=== PATIENT | female | born 1980 | race African-American/Black ===

== ENCOUNTER 2024-11-15 15:19 | Emergency (ER) | payer OTHER ==
[~2024-11-15] VITALS: Ht 175.3 cm; Wt 88.7 kg
[2024-11-15 15:45] VITALS: O2SAT 98
--- NOTE | 2024-11-15 16:09 | ED.PDOC ---
History of Present Illness HPI Comments 44-year-old female with PMHx Uterine Fibroids presents with a chief complaint of abnormal labs. Patient states that she had a routine checkup at her PCP office a week ago and had blood work drawn. Patient states that she received a phone call today that advised her to go to the nearest ER due to having a HGB of 7.2 and low Iron levels. Patient denies any pain, shortness a breath or current bleeding. She states she does have heavy menses which she believes are due to uterine fibroids. She denies any hematemesis, black stools, pain, weakness, dizziness, shortness of breath or other symptoms. She is requesting and iron infusion. 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 Bilateral Carpal tunnel release FINANCIAL UNDERWRITER History: Uterine Fibroids Family History Family History: Reviewed,noncontributory to illness Social History Smoker: Non-Smoker Alcohol: Denies ETOH Use Drugs: Denies Drug Use Lives In: Home Constitutional: denies: chills, diaphoresis, fatigue, fever, malaise, sweats, weakness, others EENTM: denies: blurred vision, double vision, ear bleeding, ear discharge, ear drainage, ear pain, ear ringing, eye pain, eye redness, hearing loss, mouth pain, mouth swelling, nasal discharge, nose bleeding, nose congestion, nose pain, photophobia, tearing, throat pain, throat swelling, voice changes, others Respiratory: denies: cough, hemoptysis, orthopnea, SOB at rest, shortness of breath, SOB with excertion, stridor, wheezing, others Cardiovascular: denies: chest pain, dizzy spells, diaphoresis, Dyspnea on exertion, edema, irregular heart beat, left arm pain, lightheadedness, pal pitations, PND, syncope, others Gastrointestinal: denies: abdomen distended, abdominal pain, blood streaked bowels, constipated, diarrhea, dysphagia, difficulty swallowing, hematemesis, melena, nausea, poor appetite, poor fluid intake, rectal bleeding, rectal pain, vomiting, others Genitourinary: denies: abnormal vagina bleeding, burning, dyspareunia, dysuria, flank pain, frequency, hematuria, incontinence, pain, , vagina discharge, urgency, others Neurological: denies: dizziness, fainting, headache, left sided numbness, left sided weakness, numbness, paresthesia, pre-existing deficit, right sided numbness, right sided weakness, seizure, speech problems, tingling, tremors, weakness, others Musculoskeletal: denies: back pain, gout, joint pain, joint swelling, muscle pain, muscle stiffness, neck pain, others Integumetry: denies: bruises, change in color, change in hair/nails, dryness, laceration, lesions, lumps, rash, wounds, others Allergic/Immunocompromised: denies: Difficulty Healing, Frequent Infections, Hives, Itching, others Hematologic/Lymphatic: denies: anemia, blood clots, easy bleeding, easy b ruising, swollen glands, others Endocrine: denies: excessive hunger, excessive sweating, excessive thirst, excessive urination, flushing, intolerance to cold, intolerance to heat, unexplained weight gain, unexplained weight loss, others Psychiatric: denies: anxiety, bipolar disorder, depression, hopeless, panic disorder, schizophrenia, sleepless, suicidal, others All Other Systems: Reviewed and Negative Physical Exam General Appearance: No Apparent Distress HEENT: Other (Pupils and face symmetric. Moist mucous membranes.) Neck: Full Range of Motion, Normal Inspection Respiratory: Lungs Clear, No Accessory Muscle Use, No Respiratory Distress, Normal Breath Sounds Cardiovascular: No Edema, No JVD, Regular Rate/Rhythm Breast Exam: Deferred Gastrointestinal: Non Tender, Soft Genitalia: Deferred Pelvic: Deferred Rectal: Deferred Extremities: Normal inspection, Normal range of motion, Non-tender, No pedal edema Musculoskeletal : Apperance: Normal Neurologic: Alert (Oriented x4), Normal Affect, Normal Mood, Other (Ambulatory without difficulty) Cerebellar Function: NOT DONE Reflexes: NOT DONE Skin: Dry, Normal Color, Warm Lymphatic: NOT DONE Was a procedure done? Was a procedure done?: No Differential Dx Considerations may include: Anemia, lab air, low iron levels, coagulopathy, among others X-Ray, Labs, Meds, VS Vital Signs Date Time Temp Pulse Resp B/P (MAP) Pulse Ox O2 Delivery O2 Flow Rate FiO2 11/15/24 15:57 97.9 95 18 118/74 (89) 98 97.9 11/15/24 15:45 98 Room Air* 0 21 Lab Test 11/15/24 16:15 Range/Units White Blood Count 7.3 4.4-10.8 10^3/uL Red Blood Count 3.78 L 4.0-5.20 10^6/uL Hemoglobin 8.0 L 12.2-16.2 g/dL Hematocrit 27.9 L 36.0-46.0 % Mean Corpuscular Volume 74.0 L 80.0-100.0 fL Mean Corpuscular Hemoglobin 21.3 L 28.0-32.0 pg Mean Corpuscular Hemoglobin Concent 28.8 L 32.0-36.0 g/dL Red Cell Distribution Width 19.9 H 11.8-14.3 % Platelet Count 272 140-450 10^3/uL Mean Platelet Volume 9.2 6.9-10.8 fL Neutrophils (%) (Auto) 55.8 37.0-80.0 % Lymphocytes (%) (Auto) 33.0 10.0-50.0 % Monocytes (%) (Auto) 7.6 0.0-12.0 % Eosinophils (%) (Auto) 3.2 0.0-7.0 % Basophils (%) (Auto) 0.4 0.0-2.0 % Neutrophils # (Auto) 4.1 1.6-8.6 10 ^3/uL Lymphocytes # (Auto) 2.4 0.4-5.4 10 ^3/uL Monocytes # (Auto) 0.6 0-1.3 10 ^3/uL Eosinophils # (Auto) 0.2 0-0.8 10 ^3/uL Basophils # (Auto) 0 0-0.2 10 ^3/uL Nucleated Red Blood Cells 0.1 % Prothrombin Time 10.5 9.3-11.8 sec Prothrombin Time INR 0.99 0.9-1.15 Activated Partial Thromboplast Time 24.1 L 24.5-34.5 SEC Sodium Level 140 136-145 mmol/L Potassium Level 3.6 3.5-5.1 mmol/L Chloride Level 108 H 98-107 mmol/L Carbon Dioxide Level 24 20-31 mmol/L Anion Gap 8 5-15 Blood Urea Nitrogen 9 9-23 mg/dL Creatinine 0.83 0.550-1.02 mg/dL Glomerular Filtration Rate Calc 88 >90 mL/min BUN/Creatinine Ratio 10.8 10.0-20.0 Serum Glucose 87 74-106 mg/dL Calcium Level 9.6 8.7-10.4 mg/dL Iron Level 24 L 50-170 ug/dL Total Iron Binding Capacity 364 250-425 ug/dL Percent Iron Saturation 6.6 L 15-50 % X-Ray, Labs, Meds, VS Comment 44-year-old female with a history of anemia and uterine fibroids brought in by family, referred by primary physician for evaluation of hemoglobin of 7.2 based on labs drawn a week ago, associated with low iron levels Vitals unremarkable Exam unremarkable Rhythm strip independently interpreted by me: Sinus rhythm, rate 95, no ectopy. CBC remarkable for hemoglobin 8, hematocrit 27.9, metabolic panel unremarkable, iron level 24, % saturation 6.6 Patient treated with the following in the ED: Iron infusion IV On re-evaluation, patient was asymptomatic with stable vitals. She appears stable for discharge with close outpatient follow-up with her primary physician. Time of 1ST Reevaluation: 16:28 Reevaluation 1ST: Unchanged Patient Education/Counseling: Diagnosis, Treatment Family Education/Counseling: No Family Present SEPSIS Sepsis Screen Physician Orders Iron Ivpb (11/15/24 18:15) Vital Signs Date Time Temp Pulse Resp B/P (MAP) Pulse Ox O2 Delivery O2 Flow Rate FiO2 11/15/24 15:57 97.9 95 18 118/74 (89) 98 97.9 11/15/24 15:45 98 Room Air* 0 21 Laboratory Tests Test 11/15/24 16:15 White Blood Count 7.3 10^3/uL (4.4-10.8) Departure 1 Departure Time of Disposition: 18:17 Impression: Primary Impression: Anemia Additional Impression: Iron deficiency Disposition: HOME / SELF CARE / HOMELESS Condition: Stable Additional Instructions: Your blood tests showed you are anemic, however you do not need a blood transfusion. Your hemoglobin was 8. Your iron level was low. We have given an IV iron infusion in the ER. Follow-up with your primary doctor in 1-2 days for re-evaluation. Discharged With: Relative Critical Care Note Critical Care Time?: No Stability Stability form required: No Heart Score Heart Score: Heart Score Response (Comments) Value History N/A 0 EKG N/A 0 Age N/A 0 Risk Factors N/A 0 Troponin N/A 0 Total 0 I personally scribed for KINDRA DUARTE MD ([email or web address]) on 11/15/24 at 16:09. Electronically submitted by Nic Lara ([email or web address]). KINDRA DUARTE MD Nov 15, 2024 16:09
[2024-11-15 16:45] LABS: Hematocrit 27.9 % (36.0-46.0); Hemoglobin 8.0 g/dL (12.2-16.2); Mean Corpuscular Hemoglobin 21.3 pg (28.0-32.0); Mean Corpuscular Volume 74.0 fL (80.0-100.0); Nucleated Red Blood Cells % 0.1 %
[2024-11-15 16:54] LABS: Potassium 3.6 mmol/L (3.5-5.1); Sodium 140 mmol/L (136-145)
[2024-11-15 16:55] LABS: Anion Gap 8 (5-15); Calcium 9.6 mg/dL (8.7-10.4); Carbon Dioxide 24 mmol/L (20-31)
[2024-11-15 16:56] LABS: Chloride 108 mmol/L (98-107)
[2024-11-15 16:59] LABS: Iron 24.0 ug/dL (50-170)
[2024-11-15 17:00] LABS: BUN/Creatinine Ratio 10.8 (10.0-20.0); Blood Urea Nitrogen 9 mg/dL (9-23); Glucose 87 mg/dL (74-106)
[2024-11-15 17:01] LABS: Total Iron Binding Capacity 364.0 ug/dL (250-425)
[2024-11-15 17:06] LABS: INR 0.99 (0.9-1.15); Partial Thromboplastin Time 24.1 SEC (24.5-34.5); Prothrombin Time 10.5 sec (9.3-11.8)
[2024-11-15] MEDS ORDERED: IRON SUCROSE COMPLEX 110 ML IV ONE (18:15)
[2024-11-15] MEDS: IRON SUCROSE COMPLEX 110 ML IV ONE (20:33)
[2024-11-15 22:30] VITALS: BP 136/84; PULSE 76; RESP 13; TEMP 97.8; O2SAT 98
== END 2024-11-15 22:50 | disposition home or self-care (01) ==
LOC: ER 15:19
DX: D50.8 Other iron deficiency anemias (principal); R06.02 Shortness of breath; Z86.018 Personal history of other benign neoplasm; Z89.611 Acquired absence of right leg above knee; Z89.612 Acquired absence of left leg above knee; Z98.890 Other specified postprocedural states; Z88.3 Allergy status to other anti-infective agents
CPT/HCPCS: 36415; 80048; 83540; 83550; 85025; 85610; 85730; 96365; 96366; 99284; J1756

== ENCOUNTER 2025-03-23 13:45 | Emergency (ER) | payer OTHER ==
[~2025-03-23] VITALS: Ht 175.3 cm; Wt 92.1 kg
--- NOTE | 2025-03-23 14:21 | ED.PDOC ---
FILLING WINDER HPI Comments HPI: This is a 44 year old female presenting to the ED with chief complaint of lower abdominal pain. Patient reports that she is currently experiencing lower abdominal pain since yesterday, associated with her menses starting on Thursday. Patient relays that her lower abdominal pain is current with the start of her menses due to having uterine fibroids. Patient states she had a recent "biopsy to rule out HPV" performed in [place] on Thursday. Patient notes that she has taken Motrin with no relief in pain noted. Patient reports that she is pending an MRI scheduled by her OBGYN in [place]. Patient denies any N/V/D, chest pain, SOB, dizziness, fever, or chills. Past Medical History: Uterine Fibroids, Anemia Past Surgical History: Bilateral AKA, Bilateral Carpal Tunnel Release Social History: Denies smoking, drinking, or drug use. 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 Electronically submitted by Justino Luevano ([email or web address]). I personally scribed for DWIGHT MULLER DO ([email or web address]) on 03/23/25 at 14:21. Electronically submitted by Justino Luevano ([email or web address]). DWIGHT MULLER DO Mar 23, 2025 14:21
--- NOTE | 2025-03-23 14:22 | ED.PDOC ---
MAINTENANCE MANAGER HPI Comments HPI: This is a 44 year old female presenting to the ED with chief complaint of lower abdominal pain. Patient reports that she is currently experiencing lower abdominal pain since yesterday, associated with her menses starting on Thursday. Patient relays that her lower abdominal pain is current with the start of her menses due to having uterine fibroids. Patient states she had a recent "biopsy to rule out HPV" performed in [place] on Thursday. Patient notes that she has taken Motrin with no relief in pain noted. Patient reports that she is pending an MRI scheduled by her OBGYN in [place]. Patient denies any N/V/D, chest pain, SOB, dizziness, fever, or chills. Past Medical History: Uterine Fibroids, Anemia Past Surgical History: Bilateral AKA, Bilateral Carpal Tunnel Release Social History: Denies smoking, drinking, or drug use. Medications: Reviewed Allergies: Benzoyl Peroxide HPI: Poor Historian. REVIEW OF SYSTEMS: CONSTITUTIONAL: Denies acute: fever, diaphoresis, chills, generalized weakness. HEAD: Denies acute: headache, photophobia Eyes: Denies acute: Double vision, vision loss, eye pain, eye discharge. EARS: Denies acute: tinnitus, hearing loss, ear discharge, ear pain, THROAT: Denies acute: sore throat, swelling, difficulty swallowing , pain with swallowing, change in voice. NECK: Denies acute: neck pain, neck swelling, stiff neck. HEART: Denies acute : chest pain, palpitations, LUNGS: Denies acute: SOB, wheezing, cough, hemoptysis ABDOMEN: Denies acute: Nausea, Vomiting, diarrhea, melena , hematemesis, hematochezia SKIN: Denies acute: rash, redness, lesions, itchiness. EXTREMITIES: Denies acute: calf pain, numbness, tingling, weakness, denies pain in extremity. Denies acute: Low back pain. Neuro: Denies acute: focal neurological deficit, motor or sensory focal neurological deficit, tremors, seizure like activity, confusion, dizziness, change in mental status, loss of bowel or bladder function, cauda equina like symptoms. : Denies acute: dysuria, hematuria, flank pain, increase in urinary frequency. PSYCH: Denies acute: hallucination, suicidal ideation, homicidal ideation. FEMALE: Denies acute: abnormal vaginal bleeding, foul odor, unusual discharge. Currently on her menstrual cycle PHYSICAL EXAM: General: ----mild----acute distress, awake and alert. Head: normocephalic, atraumatic. No raccoon's eyes, no shaffer sign. Neck: supple, trachea is midline, no swelling. Throat: Normal phonation. Eyes:, no erythema, no purulent discharge, no proptosis, no icterus. Heart: regular rate, regular rhythm, no significant murmur appreciated. Lungs: no apparent respiratory distress, Able to speak in full sentences. No wheezing, no rhonchi, no crackles. No stridors Clear to auscultation bilaterally. Abdomen: Lower abdominal/pelvic mild tender to palpation, non distended, soft, no guarding, no rebound, + bowel sounds. Neuro: Awake, Alert, oriented to name, self, situation, follows commands GCS=15. Speech is normal. Skin: no petechia, no purpura, no cyanosis, non-pale, not jaundice. Lower extremities: Above knee amputation bilaterally. Makes eye contact. Face: no apparent facial droop. Ambulating in the ED independently. ED COURSE: DISCLAIMER: This medical document was created using an electronic medical record system with voice recognition software and computerized dictation system. Although this document has been carefully reviewed, there might still be some phonetic and typographical errors. Occasional wrong-word or "sound-alike" substitutions may have occurred due to the inherent limitations of voice recognition software. These areas are purely typographical due to imperfections of the software programs and do not reflect any compromise in the patient's medical care. Please read the chart carefully and recognize, using context, where these substitutions have occurred. Chief Complaint: Pelvic Pain Time Seen by MD: 14:22 Reviewed Notes: Medications, Allergies Allergies: Coded Allergies: Benzoyl Peroxide (Verified Allergy, Unknown, 11/15/24) Information Source: Patient Mode of Arrival: Wheelchair Was a procedure done? Was a procedure done?: No X-Ray, Labs, Meds, VS Vital Signs Date Time Temp Pulse Resp B/P (MAP) Pulse Ox O2 Delivery O2 Flow Rate FiO2 03/23/25 15:50 80 19 153/94 (113) 99 03/23/25 13:47 96.5 81 18 141/81 99 96.5 Lab Test 03/23/25 14:33 Range/Units White Blood Count 10.3 4.4-10.8 10^3/uL Red Blood Count 3.78 L 4.0-5.20 10^6/uL Hemoglobin 9.7 L 12.2-16.2 g/dL Hematocrit 31.7 L 36.0-46.0 % Mean Corpuscular Volume 83.9 80.0-100.0 fL Mean Corpuscular Hemoglobin 25.6 L 28.0-32.0 pg Mean Corpuscular Hemoglobin Concent 30.4 L 32.0-36.0 g/dL Red Cell Distribution Width 22.2 H 11.8-14.3 % Platelet Count 254 140-450 10^3/uL Mean Platelet Volume 9.4 6.9-10.8 fL Neutrophils (%) (Auto) 76.4 37.0-80.0 % Lymphocytes (%) (Auto) 17.1 10.0-50.0 % Monocytes (%) (Auto) 4.8 0.0-12.0 % Eosinophils (%) (Auto) 1.0 0.0-7.0 % Basophils (%) (Auto) 0.7 0.0-2.0 % Neutrophils # (Auto) 7.9 1.6-8.6 10 ^3/uL Lymphocytes # (Auto) 1.8 0.4-5.4 10 ^3/uL Monocytes # (Auto) 0.5 0-1.3 10 ^3/uL Eosinophils # (Auto) 0.1 0-0.8 10 ^3/uL Basophils # (Auto) 0.1 0-0.2 10 ^3/uL Nucleated Red Blood Cells 0.0 % Sodium Level 142 136-145 mmol/L Potassium Level 3.9 3.5-5.1 mmol/L Chloride Level 109 H 98-107 mmol/L Carbon Dioxide Level 25 20-31 mmol/L Anion Gap 8 5-15 Blood Urea Nitrogen 8 L 9-23 mg/dL Creatinine 0.66 0.550-1.02 mg/dL Glomerular Filtration Rate Calc 109 >90 mL/min BUN/Creatinine Ratio 12.1 10.0-20.0 Serum Glucose 113 H 74-106 mg/dL Lactic Acid Level 1.1 0.4-2.0 mmol/L Calcium Level 9.1 8.7-10.4 mg/dL Total Bilirubin 0.3 0.2-1.0 mg/dL Aspartate Amino Transferase (AST) 14 13-40 U/L Alanine Aminotransferase (ALT) < 9 7-40 U/L Alkaline Phosphatase 85 46-116 U/L Total Protein 7.8 5.7-8.2 g/dL Albumin 4.1 3.2-4.8 g/dL Current Medications Medications (Trade) Dose Ordered Sig/Paige Route Start Time Stop Time Status Last Admin Ketorolac Tromethamine (Toradol Injection) 30 mg ONCE ONCE IM 03/23/25 14:30 03/23/25 14:31 DC 03/23/25 14:30 Acetaminophen/ Hydrocodone Bitart ([place] 5/325MG Tab) 1 tab ONCE ONCE PO 03/23/25 14:30 03/23/25 14:31 DC 03/23/25 15:40 X-Ray, Labs, Meds, VS Comment [place] [address] Ph: [phone] DIAGNOSTIC IMAGING Diagnostic Imaging Report : [id number] Signed PATIENT: STEVE RIVERA ACCT: [id number] UNIT: [id number] : 1980 LOC: ER ROOM / BED: / AGE / SEX: 44 / F ADM STATUS: REG ER SERVICE 1416 ORDERING PHYSICIAN: DWIGHT MULLER DO PROCEDURE(s): PELUS - PELVIC REASON: pelvic pain ORDER NUMBER(s): [id number], ACCESSION NUMBER(s): [id number] INDICATION: pelvic pain TECHNIQUE: Multiple real-time grayscale transabdominal sonographic images along with color and duplex Doppler of the uterus and ovaries were obtained. COMPARISON: None FINDINGS: The uterus measures 11.2 x 6.2 x 7.7 cm. Uterine fibroid measuring 6.5 x 6.2 x 6.9 cm. The endometrial stripe measures 0.2 cm. Nabothian cysts within the cervix measuring 1.3 cm. Right ovary not visualized, obscured by overlying bowel gas. Left ovary measures 2.4 x 1.6 x 1.9 cm with normal Doppler color flow IMPRESSION: Uterine fibroid measuring 6.9 cm. ATED BY: KALEB TRIMBLE MD DICTATED DATE/TIME: 03/23/251716 SIGNED BY: KALEB TRIMBLE MD SIGNED DATE/TIME: 03/23/251716 CC: Time of 1ST Reevaluation: 15:22 Reevaluation 1ST: Unchanged Patient Education/Counseling: Diagnosis, Treatment Family Education/Counseling: No Family Present Comments Patient was unable to provide us with a urine sample. Departure 1 Departure Time of Disposition: 17:50 Impression: Primary Impression: Uterine fibroid Additional Impression: Pelvic pain Disposition: HOME / SELF CARE / HOMELESS Condition: Stable Additional Instructions: Additional instructions: Please read all instructions provided in this packet carefully. You MUST follow-up with your primary care/family doctor in 1 to 2 days. If you are unable to see your primary care/family doctor, please return to our emergency room for re-assessment and re-evaluation in 1 to 2 days. Return to the emergency room here in our facility or to the nearest ER [facility] if your symptoms change or worsen. CONSULTATIONS: you MUST Follow-up for consultation as soon as possible with: Dr. ANNA MARIE Mcgarry doctor in 1-2 days. Please call for appointment. You MUST call the consultants office yourself to make an appointment. You may need to arrange that through your insurance and/or your primary/family doctor. If you are unable to see the documentum consultant in 1 to 2 days, you must return to our emergency room (or any other ER of your choice) for re-assessment and re- evaluation. Adequate fluid hydration. Although you have been discharged from the Emergency Department, this does not mean that you have a "clean bill of health". No definitive diagnosis for your symptoms has been made today. It is possible that you are in the process of developing a serious illness. This is why you must return to the ED without fail if any new or worsening symptoms develop. Use [id number] Tylenol and ibuprofen with food for pain control. Below is a copy of your radiological report for follow up: [address] [address] Ph: [phone] DIAGNOSTIC IMAGING Diagnostic Imaging Report : [id number] Signed PATIENT: STEVE RIVERA ACCT: [id number] UNIT: [id number] : 1980 LOC: ER ROOM / BED: / AGE / SEX: 44 / F ADM STATUS: REG ER SERVICE 1416 ORDERING PHYSICIAN: DWIGHT MULLER DO PROCEDURE(s): PELUS - PELVIC REASON: pelvic pain ORDER NUMBER(s): [id number], ACCESSION NUMBER(s): [id number] INDICATION: pelvic pain TECHNIQUE: Multiple real-time grayscale transabdominal sonographic images along with color and duplex Doppler of the uterus and ovaries were obtained. COMPARISON: None FINDINGS: The uterus measures 11.2 x 6.2 x 7.7 cm. Uterine fibroid measuring 6.5 x 6.2 x 6.9 cm. The endometrial stripe measures 0.2 cm. Nabothian cysts within the cervix measuring 1.3 cm. Right ovary not visualized, obscured by overlying bowel gas. Left ovary measures 2.4 x 1.6 x 1.9 cm with normal Doppler color flow IMPRESSION: Uterine fibroid measuring 6.9 cm. ATED BY: KALEB TRIMBLE MD DICTATED DATE/TIME: 03/23/251716 SIGNED BY: KALEB TRIMBLE MD SIGNED DATE/TIME: 03/23/251716 CC: Discharged With: Self Critical Care Note Critical Care Time?: No I personally scribed for DWIGHT MULLER DO ([email or web address]) on 03/23/25 at 14:22. Electronically submitted by Justino Luevano ([email or web address]). I personally scribed for DWIGHT MULLER DO ([email or web address]) on 03/23/25 at 17:32. Electronically submitted by Justino Luevano ([email or web address]). DWIGHT MULLER DO Mar 23, 2025 14:22
[2025-03-23] MEDS: KETOROLAC TROMETH 60MG/2ML VIAL IM ONE ×2 (14:30→15:52)
[2025-03-23 14:48] LABS: Hematocrit 31.7 % (36.0-46.0); Hemoglobin 9.7 g/dL (12.2-16.2); Mean Corpuscular Hemoglobin 25.6 pg (28.0-32.0); Mean Corpuscular Volume 83.9 fL (80.0-100.0); Nucleated Red Blood Cells % 0.0 %
[2025-03-23 15:06] LABS: Albumin 4.1 g/dL (3.2-4.8); Alkaline Phosphatase 85 U/L (46-116); Anion Gap 8 (5-15); BUN/Creatinine Ratio 12.1 (10.0-20.0); Calcium 9.1 mg/dL (8.7-10.4); Carbon Dioxide 25 mmol/L (20-31); Potassium 3.9 mmol/L (3.5-5.1); Sodium 142 mmol/L (136-145); Total Protein 7.8 g/dL (5.7-8.2)
[2025-03-23 15:07] LABS: Bilirubin, Total 0.3 mg/dL (0.2-1.0)
[2025-03-23 15:09] LABS: Alanine Aminotransferase < 9 U/L (7-40); Blood Urea Nitrogen 8 mg/dL (9-23); Chloride 109 mmol/L (98-107); Glucose 113 mg/dL (74-106)
[2025-03-23] MEDS: HYDROcodone-ACET 5/325MG TAB PO ONE (15:40)
--- NOTE | 2025-03-23 17:19 | DVH ---
INDICATION: pelvic pain TECHNIQUE: Multiple real-time grayscale transabdominal sonographic images along with color and duplex Doppler of the uterus and ovaries were obtained. COMPARISON: None FINDINGS: The uterus measures 11.2 x 6.2 x 7.7 cm. Uterine fibroid measuring 6.5 x 6.2 x 6.9 cm. The endometrial stripe measures 0.2 cm. Nabothian cysts within the cervix measuring 1.3 cm. Right ovary not visualized, obscured by overlying bowel gas. Left ovary measures 2.4 x 1.6 x 1.9 cm with normal Doppler color flow IMPRESSION: Uterine fibroid measuring 6.9 cm.
[2025-03-23] MEDS: HYDROcodone-ACET 5/325MG TAB ONE (17:26)
[2025-03-23] MEDS: KETOROLAC TROMETH 30 MG/ML 1ML VIAL ONE (17:26)
[2025-03-23 17:55] VITALS: BP 124/91; PULSE 72; RESP 12; TEMP 98.2; O2SAT 98
== END 2025-03-23 17:56 | disposition home or self-care (01) ==
LOC: ER 13:45
DX: D25.9 Leiomyoma of uterus, unspecified (principal); R10.30 Lower abdominal pain, unspecified; R10.20 Pelvic and perineal pain unspecified side; Z89.612 Acquired absence of left leg above knee; Z89.611 Acquired absence of right leg above knee; Z86.018 Personal history of other benign neoplasm
CPT/HCPCS: 36415; 76856; 80053; 83605; 85025; 96372; 99285; J1885